=== PATIENT | male | born 2005 | race Caucasian/White ===

== ENCOUNTER 2025-02-12 19:34 | Emergency (ER) | payer OTHER, SELFPAY ==
[2025-02-12 19:37] VITALS: BP 148/75; PULSE 86; RESP 16; TEMP 36.9; O2SAT 96; BMI 20.8
--- NOTE | 2025-02-12 19:42 | ED.GENADULT ---
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 He is generally healthy. He does have a previous rabies vaccine series after he had an exposure to a bat in 2019. During that episode he did receive rabies immune globulin and all 4 doses of the rabies vaccine series. He was walking in the [facility] a 4 nights ago on Sunday around or just after sunset when an animal apparently jumped onto his foot and then scratched her on his foot and ankle and then ran off into the [place]. He thinks the animal was behaving oddly and he thinks he almost stepped on it before it jumped on him. He did was not able to identify what species of animal was. He is not sure if he had any wounds or breaks in the skin but did have a few bug bites there that had scabbed over. He has not had any other pain or redness in his foot. He has been contemplating whether not he was exposed to rabies and whether not he needs to do anything about it. He contacted his family and they encouraged him to come in to get rabies prophylaxis. Related Data Home Medications ?Medication ?Instructions ?Recorded ?Confirmed No Known Home Medications 02/12/25 02/12/25 Allergies Allergy/AdvReac Type Severity Reaction Status Date / Time No Known Drug Allergies Allergy Verified 02/12/25 19:37 [facility] Social History Smoking Status: Never smoker Do you use any of these nicotine containing products: None Second hand tobacco smoke exposure: No How often do you have a drink containing alcohol: never How often do you have six or more drinks on one occasion: Never AUDIT-C Alcohol total score: 0 Non-prescribed substance use: denies use service: No Exam Narrative: Exam Narrative: Constitutional: Appears well-developed and well-nourished. Active. Non-toxic appearing. Polite HENT: Head: Atraumatic. No signs of injury. Nose: No nasal discharge. Mouth/Throat: Mucous membranes are moist. No trismus Eyes: Conjunctivae normal and EOM are normal. Pupils are equal, round, and reactive to light. Right eye exhibits no discharge. Left eye exhibits no discharge. No icterus. Neck: Normal range of motion. Neck supple. No adenopathy. No stridor. Cardiovascular: [place], warm, well perfused skin. Pulmonary/Chest: Effort normal. No stridor. No respiratory distress. Musculoskeletal: Normal range of motion.No deformity. Neurological: Alert. Normal strength. No cranial nerve deficit or sensory deficit. Coordination normal. GCS eye subscore is 4. GCS verbal subscore is 5. GCS motor subscore is 6. Skin: Skin is warm. No rash noted. Const: Vital Signs, click to edit/add: Vital Signs - 24 hr 02/12/25 19:37 Temperature 98.5 F Pulse Rate [Pulse Oximeter] 86 Respiratory Rate 16 Blood Pressure [Ri ght Upper Arm] 148/75 H Pulse Oximetry 96 Oxygen Delivery Me thod Room Air Course Vital Signs Vital signs: Initial Vital Signs Temperature 98.5 F 02/12/25 19:37 Temperature Source Temporal Artery Scan 02/12/25 19:37 Pulse Rate 86 02/12/25 19:37 Respiratory Rate 16 02/12/25 19:37 Blood Pressure 148/75 H 02/12/25 19:37 Blood Pressure Mean 99 02/12/25 19:37 Blood Pressure Position Sitting 02/12/25 19:37 Pulse Oximetry 96 02/12/25 19:37 Oxygen Delivery Method Room Air 02/12/25 19:37 Vital Signs Temperature 98.5 F 02/12/25 19:37 Pulse Rate 86 02/12/25 19:37 Respiratory Rate 16 02/12/25 19:37 Blood Pressure 148/75 H 02/12/25 19:37 Pulse Oximetry 96 02/12/25 19:37 Oxygen Delivery Method Room Air 02/12/25 19:37 Temperature 98.5 F 02/12/25 19:37 Pulse Rate 86 02/12/25 19:37 Respiratory Rate 16 02/12/25 19:37 Blood Pressure 148/75 H 02/12/25 19:37 Pulse Oximetry 96 02/12/25 19:37 Oxygen Delivery Method Room Air 02/12/25 19:37 Medications Administered Medications: Discontinued Medications Generic Name Dose Route Start Last Admin Trade Name Freq PRN Reason Stop Dose Admin Rabies Vaccine 2.5 unit 02/12/25 19:56 02/12/25 20:33 Rabies Vaccine (Rabavert) 2.5 Unit IM 02/12/25 19:57 2.5 unit .ONCE ONE Administration Medical Decision Making MDM Narrative Medical decision making narrative: 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 Unclear if he was bit or not by the animal. However given the patient's markedly abnormal behavior were concerned that it was either sick or possibly rapid. The animal is not available for identification or testing. There for rabies prophylactics is indicated. Fortunately the patient has had a previous rabies vaccine series. Therefore, based on [facility] guidelines he does not require rabies immune globulin tonight. He does require a 2 does rabies booster. First dose of his rabies booster administered here in the ER. I placed orders for a 2nd dose to be given on day 3, Thursday 02/15. Patient will be able to come back to the ER to complete his rabies vaccine booster. Discharge Plan Discharge Clinical Impression: Bite by animal, Rabies contact Patient Disposition: Home, Self-Care Condition: Stable Instructions: Rabies Vaccine (By injection) Additional Instructions: As we discussed, please come back to the ER on Sunday to have your 2nd rabies vaccine injection. Since you have had previous rabies vaccination, you do not need rabies immunoglobulin injections or the entire for course rabies vaccine series this time. Please follow-up with your regular doctor within 1-2 weeks if you have any more concerns or come back to the ER any time if you have problems. Prescriptions: No Action No Known Home Medications Stand Alone Forms: [employer] Info Instructions
--- OUTSIDE RECORDS SUMMARY | 2025-02-12 20:31 | XMS_ITS | Clinical Summary ---
Author Organization [facility] Address [address] [place] [address] [place] [address] Care Team Providers Care Game Attendant Name Role Phone Cory Eduardo MD Primary Care Provider [phone] Allergies Active Allergy Reactions Criticality Noted Date Comments Sunscreen Rash Medium 02/28/2019 Medications albuterol sulfate HFA 90 mcg/actuation aerosol inhaler Inhale 2 puffs every 4 hours as needed for wheezing. Use spacer when inhaling. 1 each 3 09/02/2021 Active Active Problems Problem Noted Date Diagnosed Date Motor tic disorder 09/11/2021 Assessment & Plan (09/11/2021 7:21 PM CDT): Discussed the diagnosis of tic disorder. The onset of tic disorder is typically is between 2 and 15 years, although the diagnosis may be delayed until 21 years in some cases. The average age at onset is approximately 6 years and the disorder is manifested by age 11 years in 96 percent of patients [. Most patients with tics also have comorbid problems such as attention deficit hyperactivity disorder (ADHD) or obsessive compulsive disorder (OCD). For patients who have tics that are mild and nondisabling, we suggest education and counseling without pharmacologic tic suppression therapy Discussed CBIT therapy. Discussed different pharmacological treatment options : Alpha adrenergic agonists -- The alpha adrenergic agonists clonidine and guanfacine may be useful for suppressing tics , but the evidence for tic reduction with these agents is not consistent. In some trials, alpha adrenergic agonists were no better than placebo for reducing tics and indirect evidence suggests that the magnitude of effect may be less than that of the dopamine antagonists However, guanfacine and clonidine are effective for treating the symptoms of ADHD, and may be helpful in patients with tics who have ADHD or predominant behavioral symptoms, particularly impulse control problems and rage attacks. We prefer guanfacine over clonidine because it is less sedating and can be given in fewer daily doses . Topiramate -- Evidence from small randomized controlled trials suggests that topiramate provides short-term benefit for tic suppression in patients with tic disorder. However, larger and longer-term trials are needed to confirm the safety and efficacy of topiramate in the treatment of TS. Antidopaminergic drugs -if he does not respond to guanfacine or topamax risperidone (starting at 1 to 4 mg daily) or abilify 2.5 -5 mg Given improved symptoms we will defer starting medications. If symptoms worsen we will consider starting treatment with tic suppressing medications. Shortness of breath 09/02/2021 Assessment & Plan (09/02/2021 2:21 PM CDT): 1. Spirometry ordered and reviewed. 2. Albuterol 2 puffs q4h PRN with spacer. Spacer teaching in clinic. 3. Follow up in Pulmonary Clinic if needed in 2-3 months. Immunizations Immunization Administration Dates Next Due Rabies IM fibroblast culture vaccine (Rabavert) 06/11/2019,06/04/2019,05/31/2019,2019 SARS-COV-2 (COVID-19) BEJARANO C AP Bivalent Booster vaccine, Pfizer + 03/31/2022 SARS-COV-2 (COVID-19) PURPLE CAP Monovalent Vaccine, Pfizer 12+ 06/07/2021,10/30/2020,10/09/2020 Family History Medical History Relation Name Comments Atrial fibrillation Maternal Grandmother Relation Name Status Comments Maternal Grandmother Social History Tobacco Use Types Packs/Day Years Used Date Smoking Tobacco: Never Passive Smoke Exposure: Never Smokeless Tobacco: Never Tobacco Cessation:Counseling Given: Not Answered [facility] Historical Interpersonal Safety Answer Date Recorded Does anyone neglect, hurt, or threaten the patie nt? No 07/24/2024 Sex and Gender Information Value Date Recorded Sex Assigned at Not on file Legal Sex Male 3:13 AM CDT Gender Identity Not on file Sexual Orientation Not on file Last Filed Vital Signs Vital Sign Reading Time Taken Comments Blood Pressure 119/67 08/13/2024 2:57 AM CDT Pulse 85 08/13/2024 2:57 AM CDT Temperature 37.4 C (99.4 F) 08/13/2024 2:57 AM CDT Respiratory Rate 18 08/13/2024 2:57 AM CDT Oxygen Saturation 96% 08/13/2024 2:57 AM CDT Inhaled Oxygen Concentration - - Weight 69.6 kg (153 lb 5.3 oz) 08/12/2024 8:48 P M CDT Height 178 cm (5' 10.08) 09/02/2021 12 :28 PM CDT Head Circumference 48.9 cm 11/13/2007 4:05 PM CDT Head Circumference Percentile 73.79% 11/13/2007 4:05 PM CDT Growth Chart: WHO (Boys, 0-2 years) Body Mass Index - - Plan of Treatment Health Maintenance Due Date Last Done Comments HIV Screening 2005 Well Child Check (EPSDT) 12/30/2008 Hepatitis C Screening 2024 Influenza Vaccine (#1) 2025 , 03/04/2023, 03/03/2023, Additional history exists DTaP,Tdap,and Td Vaccines (6 - Td or Tdap) 12/29/2026 12/29/2016, 07/13/2007, 07/02/2006, Additional history exists Hepatitis B Vaccines Completed 01/07/2007, 04/27/2006, 02/27/2006 Pneumococcal Vaccine: Pediat dong (0-5 yrs) and At-Risk (6-49 yrs) Completed 01/07/2007, 7, 04/27/2006, Additional history exists HIB Vaccines Completed 05/14/2007, 09/2006, 04/27/2006, Additional history exists IPV Vaccines Completed 11/23/2010, 10/2007, 07/02/2006, Additional history exists Varicella Vaccine Completed 11/23/2010, 01/07/2007 HPV Vaccines Completed 11/29/2017, 12/29/2016 Meningococcal ACWY Vaccine Completed 01/06/2022, Meningococcal B Vaccine Completed 02/18/2022, 01/06 COVID-19 Vaccine Completed 03/10/2024, 08/2021, 06/07/2021, Additional history exists Insurance AETNA AETNA Care Teams Game Attendant Relationship Specialty Start Date End Date Cory Eduardo MD [address] [place] [address] PCP - General General Pediatrics 08/12/21
[2025-02-12] MEDS: RABIES VACCINE (RABAVERT) 2.5 UNIT IM (20:33)
== END 2025-02-12 20:46 | disposition home or self-care (01) ==
LOC: ED 20:29
PROVIDERS: Emergency Provider Emergency Medicine
DX: Z20.3 Contact with and (suspected) exposure to rabies (principal)
CPT/HCPCS: 90471; 99282; 90675